=== PATIENT | male | born 1970 | race Caucasian/White ===

== ENCOUNTER 2024-09-18 11:59 | Outpatient (CLI) | payer BC, SELFPAY ==
--- NOTE | ~2024-09-18 | XR_ITS ---
Clinical Indication: Malignant melanoma PA and lateral views of the chest: Comparison: None Findings: The lungs are clear, without evidence of focal consolidation or pleural effusion. Cardiome diastinal silhouette is within normal limits. Bones and soft tissues are unremarkable. Impression: Normal chest. Reviewed, dictated and finalized at location . Impression: Normal chest.
== END 2024-09-18 12:00 | disposition home or self-care (01) ==
LOC: GOSHIMG 12:01
PROVIDERS: PCP Surgery; Visit Provider Surgery
DX: C43.71 Malignant melanoma of right lower limb, including hip (principal)
CPT/HCPCS: 71046